=== PATIENT | male | born 1960 | race Caucasian/White ===

== ENCOUNTER 2022-09-25 08:05 | Emergency (ER) | payer OTHER ==
[2022-09-25 08:24] VITALS: BMI 26.4
[2022-09-25 09:39] LABS: BASO % 0.9 % (0-2.0); HEMATOCRIT 44.6 % (35.4-49); HEMOGLOBIN 15.4 GM/dL (11.7-16.9); LYMPH % 32.1 % (8-40); MCH 30.4 pg (25.7-33.7); MCHC 34.4 g/dl (32.0-35.9); MEAN CELL VOLUME 88.4 fl (80-96); MEAN PLT VOLUME 10.2 fl (7.5-11.1); MONO % 9.9 % (3.8-10.2); NEUT % 55.1 % (42.8-82.8); PLATELET COUNT 235 10^3/uL (134-434); RBC 5.04 M/mm3 (4.00-5.60); RDW 14.5 % (11.9-15.9); WHITE BLOOD COUNT 7.6 K/mm3 (4.0-10.0)
[2022-09-25 10:02] LABS: CALCIUM 9.2 mg/dL (8.5-10.1)
[2022-09-25 10:04] LABS: CREATININE 0.8 mg/dL (0.55-1.3)
[2022-09-25 10:06] LABS: BILIRUBIN,TOTAL 0.3 mg/dL (0.2-1); TOT PROT 7.5 g/dl (6.4-8.2)
[2022-09-25 10:32] VITALS: BP 198/91; PULSE 73; RESP 17; TEMP 97.7
== END 2022-09-25 10:32 | disposition home or self-care (01) ==
LOC: JER 08:05
DX: I10 Essential (primary) hypertension (principal)
CPT/HCPCS: 36415; 80053; 85025; 93005; 93010; 99284-25